=== PATIENT | male | born 1955 | race Caucasian/White ===

== ENCOUNTER → 2021-05-28 11:06 | Outpatient (CLI) | payer MEDICARE, MEDICAID, SELFPAY ==
[2021-05-28 23:01] LABS: COVID19 - ORCAS (NP or Nasal) Negative (Negative)
== END ==
PROVIDERS: Family Provider Family Medicine; PCP Family Medicine; Visit Provider Family Medicine
DX: Z20.822 Contact with and (suspected) exposure to COVID-19 (principal)
CPT/HCPCS: U0003

== ENCOUNTER → 2021-06-22 11:33 | Outpatient (CLI) | payer MEDICARE, MEDICAID, SELFPAY ==
[2021-06-22 19:46] LABS: COVID19 - ORCAS (NP or Nasal) Negative (Negative)
== END ==
PROVIDERS: Family Provider Family Medicine; PCP Family Medicine; Visit Provider Physician Assistant Medical
DX: U07.1 COVID-19 (principal)
CPT/HCPCS: U0003

== ENCOUNTER → 2021-07-20 09:00 | Outpatient (CLI) | payer MEDICARE, MEDICAID, SELFPAY ==
[2021-07-20 19:51] LABS: COVID19 - ORCAS (NP or Nasal) Negative (Negative)
== END ==
PROVIDERS: Family Provider Family Medicine; PCP Family Medicine; Visit Provider Physician Assistant Medical
DX: Z20.822 Contact with and (suspected) exposure to COVID-19 (principal); J02.9 Acute pharyngitis, unspecified
CPT/HCPCS: U0003

== ENCOUNTER → 2023-05-30 11:14 | Outpatient (CLI) | payer MEDICARE, MEDICAID, SELFPAY ==
--- NOTE | 2023-05-30 | DI.MRI.S_ITS ---
PROCEDURE: MR SHOULDER RT W CON INDICATIONS: INJURY TO R SHOULDER TECHNIQUE: After the administration of 12 mL of dilute intra-articular Gadolinium contrast, oblique coronal T1 and T2 spin echo with fat saturation, oblique sagittal T1 spin echo with and without fat saturation, oblique sagittal T2 fast spin echo with fat saturation, axial T1 spin echo with fat saturation through the shoulder. COMPARISON: [facility], , [place] SHOULDER INJECTION MR/CT RT, 05/30/2023, 13:05. FINDINGS: Image quality: Excellent. Rotator cuff: There is moderate supraspinatus and infraspinatus tendinosis with low-grade partial intrasubstance tearing at the distal insertion. The teres minor and subscapularis tendons are intact. There is no significant rotator cuff muscle atrophy. Bones and bursae: No acute trabecular bone injury or fracture. Chronic traction cystic changes are seen at the posterosuperior humeral head. There is diffuse full-thickness cartilage loss throughout the glenohumeral joint with marginal osteophyte formation and remodeling of the articular surfaces. Mild remodeling of the glenoid articular surface is seen resulting in approximately degrees retroversion relative to the midplane of the scapula at the mid glenoid level. No intra-articular filling defect is seen in the glenohumeral joint space. No extravasation of glenohumeral contrast material. Moderate acromioclavicular degenerative changes. Trace noncommunicating subacromial/subdeltoid bursal fluid. Capsule and soft tissues: There is diffuse labral degeneration and chronic degenerative tearing. The proximal biceps long head tendon demonstrates moderate tendinosis. Glenohumeral ligaments appear to be intact. IMPRESSION: 1. Severe glenohumeral osteoarthrosis with diffuse full-thickness cartilage loss, marginal osteophyte formation common remodeling of the articular surfaces resulting in up to 8 degrees glenoid retroversion. 2. Moderate acromioclavicular joint osteoarthrosis. 3. Moderate tendinosis of the intra-articular portion of the biceps long head tendon. 4. Moderate supraspinatus and infraspinatus tendinosis with low-grade partial intrasubstance tearing at the distal supraspinatus insertion. No full-thickness rotator cuff tendon tear is seen. Approved by: Da Robledo M.D. on 05/30/2023 at 13:20
--- NOTE | 2023-05-30 | DI.RAD.S_ITS ---
PROCEDURE: XR THORACIC SPINE 2V INDICATIONS: INJURY TO R SHOULDER/HEADACHE TECHNIQUE: 3 views of the thoracic spine were acquired. COMPARISON: None. FINDINGS: Bones: No fractures or dislocations. No suspicious bony lesions. 12 pairs of ribs are noted, and appear intact where visualized. There is multilevel intervertebral disc height loss with degenerative endplate changes and marginal spurring. Soft tissues: No paravertebral stripe thickening. IMPRESSION: Multilevel degenerative changes of the thoracic spine. Dictated by: Jose Collazo M.D. on 05/30/2023 at 14:32 Approved by: Jose Collazo M.D. on 05/30/2023 at 14:33
--- NOTE | 2023-05-30 | DI.MRI.S_ITS ---
PROCEDURE: MR KNEE LT WO CON INDICATIONS: BILAT KNEE PAIN TECHNIQUE: Noncontrast sagittal PD fast spin echo and T2 fast spin echo with fat saturation, sagittal 3-D FLASH with fat saturation; coronal T1 spin echo and PD fast spin echo with fat saturation, and axial PD fast spin echo with fat saturation through the knee. COMPARISON: [facility] [place], [place], XR KNEE ARTHRITIC SERIES BI, 10/16/2017, 15:50. FINDINGS: Image quality: Excellent. Anterior Cruciate Ligament: Intact. Posterior Cruciate Ligament: Intact. Medial Collateral Ligament: Mild thickening of the proximal medial collateral ligament is most likely secondary to a remote prior low-grade sprain. Lateral Collateral Ligament: Intact. Medial Meniscus: Diminutive appearance of the meniscal body. A horizontal oblique tear is seen at the meniscal body extending to the outer third of the femoral component is seen extending to the tibial articular surface at the junction of the anterior horn and body. articular surface. Lateral Meniscus: Intact. Medial and Lateral Tendons: The semimembranosus tendon insertions and meniscocapsular junction appear intact. Visualized portions of the pes anserinus tendons appear normal. No abnormal bursal fluid. The long and short heads of the biceps femoris tendon appear intact. The popliteus tendon appears intact. No signs of posterolateral corner injury. Iliotibial band appears normal. Anterior Structures: The quadriceps and patellar tendons appear intact. No patellar subluxation. No femoral trochlear dysplasia or ventral trochlear prominence. No edema in the infrapatellar fat pad. Bones: No acute trabecular bone injury or fracture. Medial Femorotibial Cartilage: Full-thickness cartilage loss is seen at the posterior weight-bearing portion of the medial femoral condyle and the central weight-bearing portion of the medial tibial plateau with subchondral cystic changes and edema. Small marginal osteophytes are present. Lateral Femorotibial Cartilage: Grade 3 chondromalacia is seen in the posterior weight-bearing portion of the lateral femoral condyle and lateral tibial plateau. Patellofemoral Cartilage: Full-thickness cartilage loss is seen at the trochlear groove/medial femoral trochlea with subchondral osteophyte formation. High-grade cartilage loss is seen at the median ridge of the patella. Soft Tissues: A moderate joint effusion is present. Trace medial popliteal cyst. The musculature surrounding the knee is normal in bulk. IMPRESSION: 1. Areas of full-thickness cartilage loss are seen in the medial femorotibial and patellofemoral compartments and there is grade 3 chondromalacia in the lateral femorotibial compartment. Tricompartmental marginal osteophytes. 2. Complex tearing of the medial meniscus with horizontal oblique components extending to the femoral and tibial articular surfaces and a diminutive appearance of the meniscal body. 3. Remote prior low-grade sprain of the proximal medial collateral ligament. 4. Cruciate ligaments are intact. No acute trabecular bone injury. 5. Moderate joint effusion. Approved by: Da Robledo M.D. on 05/30/2023 at 14:15
--- NOTE | 2023-05-30 | DI.MRI.S_ITS ---
PROCEDURE: MR KNEE RT WO CON INDICATIONS: BILAT KNEE PAIN TECHNIQUE: Noncontrast sagittal PD fast spin echo and T2 fast spin echo with fat saturation, sagittal 3-D FLASH with fat saturation; coronal T1 spin echo and PD fast spin echo with fat saturation, and axial PD fast spin echo with fat saturation through the knee. COMPARISON: None. FINDINGS: Image quality: Excellent. Anterior Cruciate Ligament: There is mild mucoid degeneration of the anterior cruciate ligament. The bulk of the ligament fibers remain in continuity. Posterior Cruciate Ligament: Intact. Medial Collateral Ligament: Intact. Lateral Collateral Ligament: Intact. Medial Meniscus: Intrasubstance degeneration is seen without a clearly defined tear. Lateral Meniscus: Complex tearing of the posterior horn and body of the lateral meniscus with a dominant radial component and questionable displaced meniscal flap component along the posterior horn. There is extrusion of the meniscal body. Medial and Lateral Tendons: The semimembranosus tendon insertions and meniscocapsular junction appear intact. Visualized portions of the pes anserinus tendons appear normal. No abnormal bursal fluid. The long and short heads of the biceps femoris tendon appear intact. The popliteus tendon appears intact. No signs of posterolateral corner injury. Iliotibial band appears normal. Anterior Structures: Postsurgical changes from quadriceps tendon repair. The surgical construct is intact. The patellar tendon is intact. No patellar subluxation. No femoral trochlear dysplasia or ventral trochlear prominence. Mild scarring in the infrapatellar fat pad. Bones: No acute trabecular bone injury or fracture. Medial Femorotibial Cartilage: Full-thickness cartilage loss is seen in the central weight-bearing portion of the medial femoral condyle with subchondral osteophyte formation, subchondral cystic changes, and small marginal osteophytes. There is background grade 3 chondromalacia in the medial compartment. Lateral Femorotibial Cartilage: Full-thickness cartilage loss is seen in the central posterior weight-bearing portion of the lateral femorotibial compartment with subchondral cystic changes and edema and remodeling of the lateral tibial plateau articular surface. Small marginal osteophytes are present. Patellofemoral Cartilage: Full-thickness cartilage loss is seen at the lateral femoral trochlea with subchondral cystic changes and at the adjacent portion of the lateral patellar facet. Marginal osteophyte formation is present. Soft Tissues: Moderate joint effusion. Trace medial popliteal cyst. Small amount of fluid is seen tracking along the popliteus tendon sheath. The musculature surrounding the knee is normal in bulk. IMPRESSION: 1. Complex tearing of the posterior horn and body of the lateral meniscus with a dominant radial component and extrusion of the meniscal body. Questionable displaced meniscal flap component adjacent to the posterior horn. 2. Intrasubstance degeneration in the medial meniscus without a definite well-defined tear. 3. Full-thickness cartilage loss is seen and all 3 compartments, worst in the lateral femorotibial compartment with subchondral edema and remodeling of the articular surfaces. Tricompartmental marginal osteophytes. 4. Mild mucoid degeneration of the anterior cruciate ligament. The bulk of the ligament fibers are intact. 5. Postsurgical changes from distal quadriceps tendon repair with an intact surgical construct. Normal patellar alignment. 6. Moderate joint effusion. Approved by: Da Robledo M.D. on 05/30/2023 at 13:38
--- NOTE | 2023-05-30 | DI.RAD.S_ITS ---
PROCEDURE: XR CERVICAL SPINE 2V OR 3V INDICATIONS: INJURY TO R SHOULDER/HEADACHE TECHNIQUE: 3 view(s) of the cervical spine were acquired. COMPARISON: None. FINDINGS: Bones: No fractures or dislocations to the C6 level. The lateral masses of C1 appear intact on the odontoid view. Straightening of the normal cervical lordosis. Mild anterolisthesis of C3 on C4 and C4 on C5. There are multilevel degenerative changes of the cervical spine with facet and uncovertebral arthropathy, disc height loss with degenerative endplate changes and spurring. This is severe at C5-C6. No suspicious bony lesions. Soft tissues: No prevertebral soft tissue swelling. IMPRESSION: Multilevel degenerative changes of the cervical spine, severe at C5-C6. Dictated by: Jose Collazo M.D. on 05/30/2023 at 14:33 Approved by: Jose Collazo M.D. on 05/30/2023 at 14:34
--- NOTE | 2023-05-30 | DI.RAD.S_ITS ---
PROCEDURE: [place] SHOULDER INJECTION MR/CT RT INDICATIONS: INJURY TO R SHOULDER COMPARISON: None. TECHNIQUE: The indications, alternatives, benefits, risks, and complications of the procedure were explained to the patient. Written informed consent was obtained and placed in the chart. The shoulder was examined fluoroscopically and a site for needle placement chosen for entry into the glenohumeral joint from an anterior approach. The skin was prepped and draped in a sterile fashion, and 1% lidocaine infiltrated from skin down to joint capsule. A spinal needle was inserted into the glenohumeral joint, and a small amount of iodinated contrast media injected to confirm intra-articular placement of the needle tip. This was followed by approximately 12 mL dilute solution of a gadolinium containing MR contrast agent. The needle was removed and a dressing was applied. The patient was given postprocedural instructions and sent to the MR suite for MR imaging. FINDINGS: A single fluoroscopic spot image demonstrates intra-articular location of injected iodinated contrast. IMPRESSION: Successful fluoroscopically guided administration of dilute Gadolinium solution into the shoulder joint for MR arthrogram. Dictated by: Jose Collazo M.D. on 05/30/2023 at 13:00 Approved by: Jose Collazo M.D. on 05/30/2023 at 13:00
--- NOTE | 2023-05-30 | DI.CT.S_ITS ---
PROCEDURE: CT HEAD/BRAIN WO CON INDICATIONS: HEADACHE TECHNIQUE: Noncontrast 4.5 mm thick angled axial sections acquired from the foramen magnum to the vertex, with coronal and sagittal reformats. For radiation dose reduction, the following was used: automated exposure control, adjustment of mA and/or kV according to patient size. COMPARISON: None. FINDINGS: Image quality: Mild streak artifact can be seen through the skull base. CSF spaces: Basal cisterns are patent. No extra-axial fluid collections. The ventricles are symmetric in size and shape. Brain: No intracranial bleeds or masses. There is cerebral volume loss for age, with resultant ventricular and sulcal prominence. There are periventricular and deep white matter chronic small vessel ischemic changes. There is intracranial internal carotid artery atherosclerosis. Skull and face: Calvarium and visualized facial bones appear intact, without suspicious lesions. Sinuses: Visualized sinuses and mastoids are clear. IMPRESSION: Noncontrast head CT within normal limits for age, without a cause of headache identified. No acute intracranial hemorrhage is seen. To the limits of this noncontrast study, no findings masses or mass effect can be seen. No hydrocephalus is seen. The cerebellar tonsils demonstrate an unremarkable appearance and are not low lying. Dictated by: Hilario Villalta M.D. on 05/30/2023 at 13:22 Approved by: Hilario Villalta M.D. on 05/30/2023 at 13:23
[2023-05-30] MEDS: LIDOCAINE 1% 20 ML INJ (12:15)
[2023-05-30] MEDS: SODIUM CHLORIDE 0.9 % 20 ML VIAL IV (12:15)
== END ==
PROVIDERS: Family Provider Family Medicine; PCP Family Medicine; Referring Provider Family Medicine; Visit Provider Family Medicine
DX: R51.9 Headache, unspecified (principal); S49.91XS Unspecified injury of right shoulder and upper arm, sequela; M23.92 Unspecified internal derangement of left knee; M23.91 Unspecified internal derangement of right knee; M17.11 Unilateral primary osteoarthritis, right knee; M25.711 Osteophyte, right shoulder; M75.111 Incomplete rotator cuff tear or rupture of right shoulder, not specified as traumatic; S83.271A Complex tear of lateral meniscus, current injury, right knee, initial encounter; M25.761 Osteophyte, right knee; M25.461 Effusion, right knee; M94.262 Chondromalacia, left knee; S83.232A Complex tear of medial meniscus, current injury, left knee, initial encounter; S83.412A Sprain of medial collateral ligament of left knee, initial encounter; M25.462 Effusion, left knee
CPT/HCPCS: 23350; 70450; 72040; 72070; 73222; 73721; 77002

== ENCOUNTER → 2023-10-22 09:02 | Outpatient (CLI) | payer MEDICARE, MEDICAID, SELFPAY ==
--- NOTE | 2023-10-22 | DI.RAD.S_ITS ---
PROCEDURE: XR LUMBAR SPINE 2-3V INDICATIONS: BACK PAIN TECHNIQUE: 3 views of the lumbar spine were acquired. COMPARISON: None. FINDINGS: Bones: Grade 1 anterolisthesis of L4 on L5. Vertebral body heights are well maintained. Multilevel degenerative disc disease of the lumbar spine, most pronounced and moderate at L4-5 and L5-S1. Severe lower lumbar facet arthropathy. Soft tissues: Overlying bowel gas pattern is normal. No suspicious soft tissue calcifications. IMPRESSION: No acute bony abnormality. Dictated by: Sharon Rodriguez M.D. on 10/22/2023 at 15:30 Approved by: Sharon Rodriguez M.D. on 10/22/2023 at 15:32
--- NOTE | 2023-10-22 | DI.RAD.S_ITS ---
PROCEDURE: XR HAND RT MIN 3V INDICATIONS: HAND PAIN TECHNIQUE: 3 views of the hand(s) acquired. COMPARISON: None. FINDINGS: Bones: Moderate degenerative changes of the 1st interphalangeal joint. Mild degenerative change of the 1st metacarpal phalangeal joint. Moderate degenerative changes of the 2nd metacarpal phalangeal joint. Moderate degenerative change of the 5th distal interphalangeal joint. No acute fracture or dislocation. Soft tissues: No suspicious soft tissue calcifications. IMPRESSION: No acute bony abnormality. Dictated by: Sharon Rodriguez M.D. on 10/22/2023 at 15:28 Approved by: Sharon Rodriguez M.D. on 10/22/2023 at 15:30
--- NOTE | 2023-10-22 | DI.RAD.S_ITS ---
PROCEDURE: XR HAND LT MIN 3V INDICATIONS: HAND PAIN TECHNIQUE: 3 views of the hand(s) acquired. COMPARISON: None. FINDINGS: Bones: Suture anchor is seen at the base of the 1st proximal phalanx. Moderate degenerative changes at the 1st interphalangeal joint and the 1st metacarpal phalangeal joint. No acute fracture or dislocation. IMPRESSION: No acute bony abnormality. Dictated by: Sharon Rodriguez M.D. on 10/22/2023 at 15:26 Approved by: Sharon Rodriguez M.D. on 10/22/2023 at 15:28
--- NOTE | 2023-10-22 | DI.RAD.S_ITS ---
PROCEDURE: XR SHOULDER LT MIN 2V INDICATIONS: SHOULDER PAIN TECHNIQUE: 3 views of the shoulder were acquired. COMPARISON: None. FINDINGS: Mild degenerative changes acromioclavicular joint. Moderate degenerative change of the glenohumeral joint. No acute fracture or dislocation. IMPRESSION: No acute bony abnormality. Dictated by: Sharon Rodriguez M.D. on 10/22/2023 at 15:32 Approved by: Sharon Rodriguez M.D. on 10/22/2023 at 15:33
--- NOTE | 2023-10-22 09:15 | DI.CT.S_ITS ---
PROCEDURE: CT FACIAL BONES WO CON INDICATIONS: 67-year-old male with headaches status post left-sided facial trauma 1 year prior TECHNIQUE: Noncontrast 2.5 mm thick axial images acquired from the mandible through the frontal sinuses, with coronal and sagittal reformatting. For radiation dose reduction, the following was used: automated exposure control, adjustment of mA and/or kV according to patient size. COMPARISON: None. FINDINGS: Maxillofacial Bones: The zygomaticomaxillary complex is intact. The pterygoid plates and skull base are unremarkable. No evidence of fracture or lytic lesion. Cervical spine degenerative disc disease and arthropathy Mandible: The mandible is intact without fracture. Unremarkable temporomandibular articulation. Dentition: Unremarkable mandibular and maxillary dentition. Soft tissues: No maxillofacial soft tissue swelling. No radiopaque foreign bodies. Cavernous ICA atherosclerotic vascular calcification Orbits: The osseous orbits, globes and ocular muscles unremarkable. Sinuses and Mastoid: 1.3 cm retention cyst in the left maxillary sinus IMPRESSION: Unremarkable facial bones without evidence of old fracture deformity or retained foreign body. Incidental small left maxillary sinus retention cyst. Approved by: Bradford Abel M.D. on 10/22/2023 at 12:20
== END ==
PROVIDERS: Family Provider Family Medicine; PCP Family Medicine; Referring Provider Family Medicine; Visit Provider Family Medicine
DX: S07 Crushing injury of head (principal); R51.9 Headache, unspecified; J34.1 Cyst and mucocele of nose and nasal sinus; M25.512 Pain in left shoulder; M79.644 Pain in right finger(s); M79.645 Pain in left finger(s); M43.16 Spondylolisthesis, lumbar region; M51.36 Other intervertebral disc degeneration, lumbar region; M51.37 Other intervertebral disc degeneration, lumbosacral region; M47.816 Spondylosis without myelopathy or radiculopathy, lumbar region; M54.50 Low back pain, unspecified
CPT/HCPCS: 70486; 72100; 73030; 73130

== ENCOUNTER 2023-11-18 05:55 | Day surgery (SDC) | payer MEDICARE, MEDICAID, SELFPAY ==
[2023-11-13 12:06] VITALS: BMI 32.1
[2023-11-18] VITALS (10 sets, daily range): BP systolic 118–170; BP diastolic 68–88; PULSE 68–95; RESP 12–18; TEMP 36.2–36.8; O2SAT 94–99; BMI 31.6
--- NOTE | 2023-11-18 06:51 | DI.RAD.S_ITS ---
PROCEDURE: XR KNEE RT 1TO2V INDICATIONS: total right knee TECHNIQUE: 2 view(s) of the knee acquired. COMPARISON: None. FINDINGS: Bones: Patient is status post knee joint arthroplasty. Hardware components are in expected positions. Visualized bony structures are intact. Soft tissues: Overlying postoperative changes are noted. IMPRESSION: Expected post-operative appearance of a knee arthroplasty. Dictated by: Sera Hu M.D. on 11/18/2023 at 11:10 Approved by: Sera Hu M.D. on 11/18/2023 at 11:10
[2023-11-18] MEDS: LACTATED RINGERS 1,000 ML 42 ML IV (07:00)
[2023-11-18] MEDS: ACETAMINOPHEN 325 MG TABLET 975 MG PO (07:00)
[2023-11-18] MEDS: CELECOXIB 200 MG CAPSULE PO (07:00)
[2023-11-18] MEDS: VANCOMYCIN 1,500 MG/300 ML PIGGYBACK 200 MG IV (07:07)
--- NOTE | 2023-11-18 07:45 | P.HP_ITS ---
History of Present Illness History of Present Illness Date Patient Seen: 11/18/23 Time Patient Seen: 07:30 Date of Onset of Symptoms: 11/18/23 Chief complaint: Total knee right Narrative: 67-year-old gentleman with a history of multiple right knee injuries. He has ongoing severe right knee pain and significant instability. Please see attached office notes for full history and physical. He notes persistent substantial pain. He is having ongoing problems with instability. He has had multiple operations on his right knee including a quad repair with some problems with wound healing and multiple arthroscopic as well as open surgeries in the past. He has a history of suture reaction but states that he did not have a known history of previous infection. [facility] Medical History Osteoarthritis Seasonal allergies Asthma ADD (attention deficit disorder) TBI (traumatic brain injury) (1997) Hx SBO (02/10/20) History of fracture of vertebra Surgical History Hx of thumb surgery Hx of shoulder surgery Hx of arthroscopy of left knee (2009) Hx of knee surgery Hx of knee surgery (2001) Hx of arthroscopy of right knee (1990) Hx of tonsillectomy Hx of colostomy Status post colostomy takedown Status post Sherri procedure Hx of abdominal surgery (2019) Hx of abdominal surgery (2015) S/P repair of ventral hernia Social History household members: significant other Smoking Status: Never smoker alcohol intake: current Meds Home Medications and Allergies Home Medications Medication Instructions Recorded Confirmed Type aspirin 325 mg tablet 325 mg PO DAILY PRN pain 01/23/21 11/18/23 History triamcinolone acetonide 55 mcg 2 spray intranasal DAILY 01/23/21 11/18/23 History nasal spray aerosol acyclovir 400 mg tablet 400 mg PO TID PRN cold sores #60 01/24/21 11/18/23 Rx tabs albuterol sulfate 90 mcg/actuation 2 puff inhalation Q4-6H PRN 01/24/21 11/18/23 Rx aerosol inhaler shortness of breath or wheezing #8.5 grams celecoxib 200 mg capsule 200 mg PO BID #60 caps 07/21/21 05/14/24 Rx dextroamphetamine-amphetamine 20 20 mg PO TID #84 tabs 01/24/21 11/18/23 Rx mg tablet diazepam 10 mg tablet 10 mg PO TID PRN anxiety #60 tabs 01/24/21 11/18/23 Rx levothyroxine 125 mcg tablet 125 mcg PO DAILY #30 tabs 01/24/21 11/18/23 Rx quetiapine 100 mg tablet 400 mg (4 x 100 mg) PO BEDTIME 01/24/21 11/18/23 Rx #120 tabs tamsulosin 0.4 mg capsule 0.4 mg PO BEDTIME #30 caps 01/24/21 11/18/23 Rx fluticasone furoate 100 1 inh inhalation DAILY 11/13/23 11/18/23 History mcg/actuation blister powder for inhalation (Arnuity Ellipta) scopolamine base 1 mg over 3 days 1 patch transdermal Q72H PRN 11/13/23 11/13/23 History transdermal patch Dizziness Allergies Allergy/AdvReac Type Severity Reaction Status Date / Time fentanyl Allergy Severe Anaphylaxis Verified 11/18/23 06:52 pollen extracts Allergy Unknown HAY FEVER Verified 11/18/23 06:52 Review of Systems Review of Systems Narrative: No recent fever chills, Exam Vital Signs (past 8 hours): - 11/18/23 07:16 Temperature 97.5 F L Pulse Rate 94 H Respiratory Rate 17 Blood Pressure 165/88 H Pulse Oximetry 97 Oxygen Delivery Method Room Air Oxygen Delivery Method Room Air Narrative Exam Narrative: HEENT is benign, lungs are clear cor regular rate and rhythm, abdomen obese but benign, right lower extremity healed incision, no significant extensor lag, acceptable tracking of the patella, severe crepitation with range of motion, calf soft distally, neurologically intact distally, no civic open wounds but slight scratches on legs bilaterally, Objective Labs Labs: X-rays show severe right knee osteoarthritis tricompartment arthritis with retained suture anchors in the patella Assessment & Plan Assessment and plan (1) History of traumatic brain injury: Problem details: 1997 - resulted in ADD and PTSD Status: Acute (2) BPH associated with nocturia: Status: Chronic (3) Attention deficit disorder (ADD) in adult: Problem details: secondary to TBI in 1997 Status: Chronic (4) PTSD (post-traumatic stress disorder): Problem details: secondary to TBI in 1997 Status: Chronic (5) Chronic pain: Status: Chronic (6) Osteoarthritis of right knee: Qualifiers: Osteoarthritis type: post-traumatic Qualified Code(s): M17.31 - Unilateral post-traumatic osteoarthritis, right knee Status: Acute Plan I have recommended a right total knee arthroplasty. Procedure options risks benefits and complications were discussed in detail. He understands concerns regarding risk for infection as he has had multiple procedures in the past. He also understands that he has had prior patellar injuries and he is at increased risk for problems with his patellofemoral joint and or possibly fracture. He would like to get his knee stable enough that he may be able to do physical activity again including skiing on [employer] runs but understands that he will not be able to return to his previous level of intense skiing. Risks including but not limited to persistent pain despite satisfactory arthroplasty, fracture, infection, DVT, and potential anesthetic complications were discussed in detail. He has been previously seen and had several appointments in the office including an extensive appointment on the phone preoperatively to further discuss all of his concerns. He understands and agrees.
--- NOTE | 2023-11-18 07:45 | PM.PREOP ---
Pre-operative Note Interval Note History & Physical reviewed/Exam performed by Physician: Yes Changes to H&P: No
--- NOTE | 2023-11-18 07:49 | SUR.PREOP ---
Block start time [0740] . Monitoring initiated and maintained throughout procedure. Oxygen and medications given per anesthesiologist instructions. Patient remained stable throughout procedure, no adverse reactions noted. Block end time [0745].
[2023-11-18] MEDS: TRANEXAMIC ACID 1,000 MG VIAL 1000 MG INJ ×2 (08:08→09:58)
[2023-11-18] MEDS: CEFAZOLIN 2 GM/100 ML PREMIX 100 ML IV (08:08)
--- NOTE | 2023-11-18 08:10 | P.OP_ITS ---
Operative Date/Time/Diagnoses Date of procedure: 11/18/23 Time of procedure: 08:00 Pre-op diagnosis: SEVERE RIGHT KNEE OA posttraumatic Post-op diagnosis: same Procedure & Clinicians Procedure: Right total knee arthroplasty Same procedure as scheduled: Yes Indications: The patient has had progressively worsening right knee pain with radiographic changes consistent with arthritis. He has had multiple prior operations. He did have problems in the past with some sutures spitting as well as some reaction to previous ligament reconstructive materials. He has a history of a quad rupture with retained suture anchors in the plan is not to resurface his patella. Non-operative management has failed and the patient has requested total knee replacement. The risks, benefits and alternatives to surgery were discussed with the patient prior to proceeding. Risks discussed included, but were not limited to, failure to relieve pain, stiffness, infection, nerve damage, deep venous thrombosis, pulmonary embolism, stroke, coma, heart attack, permanent paralysis and , as well as the potential need for eventual revision of the prosthetic. Surgeon: Anna Funes [employer] Associate: Erich Quiñonez Anesthesia Type: General Operative Notes Closure Type: primary Specimen(s): none sent Estimated Blood Loss (mL): 250 Blood products transfused: none Tourniquet time (min): 89 Procedure in detail: The patient was seen in the pre-operative area, where the patient identified the right knee as the operative site and this was marked with my initials. The patient received pre-operative antibiotics, and was taken to the operating room and placed on the operative table in the supine position. After satisfactory anesthesia, a manager gaming out was performed. The right leg was encircled with a tourniquet about the proximal thigh, and the leg was prepared from the toes to the tourniquet with ChloroPrep in the usual fashion and draped through sterile drapes. The leg was elevated and exsanguinated with Eschmark bandage and the tourniquet inflated to [250] mmHg pressure. A PA was used during the procedure and was essential for intraoperative retraction and safe implantation of the components. The right knee was approached through an approximately 18 cm incision centered over the patella and carried into the knee through a medial parapatellar arthrotomy. Portion of the medial and lateral meniscus was resected. Soft tissue was carefully mobilized around the patella and any overlying osteophytes were removed. A small amount of additional medial and lateral meniscus was resected. Cori PINS were placed in the femur for navigation. The guide was placed along the tibia It looked like an appropriate distal femoral cut and the cut was made without difficulty. The rotation was assessed and the appropriate size femoral guide was placed on the distal femur and finishing cuts were made. There was no evidence of notching. The anterior, posterior and chamfer cuts were then made. The posterior osteophytes and soft tissues were then removed. The posterior capsule was injected with part of a mixture of 60 ml 0.25% Marcaine mixed with 20 ml Exparel for post operative pain control. The remainder of this mixture was injected into the capsule and subcutaneous tissues during cement curing. The tibia was carefully navigated using the robotic navigation for optimizing the cut on the tibia. Tibia was resected without difficulty. The patient was placed in extension residual medial and lateral meniscus as well as any residual bone was carefully resected. [No] additional tibia was resected. Hemostasis was achieved especially posteriorly. Additional local was injected into the posterior capsule. The extension gap was assessed and appeared to be adequate. The femoral component was trial was placed and the notch was finished. Trial tibial and femoral components were then placed and the knee placed through a range of motion. Range of motion was [0-130], with good stability throughout the range. The trials were then removed, and the tibia was finished. The bone was prepared with pulsatile lavage, and dried with a sponge. Cement was applied and the final prosthetics placed. Excess cement was removed during and after cement curing. After confirming there was no extruded cement posteriorly, the final tibial insert was placed. The knee was copiously irrigated and the tourniquet deflated. Hemostasis was obtained with the Bovie cautery. The capsule was closed with int errupted # 1 Vicryl suture. The subcutaneous layer was closed with barbed sutures, and the skin with a running 3-0 V-Lock suture and Surgical glue. An Aquacel Ag dressing was applied and the patient was taken to recovery having tolerated the procedure well. Complications: none Post-operative Condition: stable Disposition: observation Plan for aftercare: The patient will be maintained on a standard total knee replacement protocol with weight bearing as tolerated. The patient will receive aspirin and sequential compression devices for DVT prophylaxis. The patient will be discharged home when safe for the home environment.
--- NOTE | 2023-11-18 08:41 | PM.PNB.1 ---
Peripheral Nerve Block Note Pre-Procedure Reason for block: Attending surgeon request/order for post-op pain management Consent obtained from: Patient Procedure Date of procedure: 11/18/23 Start Time: 07:40 End Time: 07:45 Performed by: Frankie Kerr Sedation - enter dose in comment field: IV Midazolam (mg) (2mg) Location: Pre-Op Position: Supine Laterality: Right Sterile Technique: Sterile barrier maintained, Sterile gloves, Mask, Sterile drapes, U/S probe cover and Chloraprep Skin Wheal: Lidocaine 1% mL: 3 Gauge: 25 Equipment Single injection - Needle brand, gauge, length: Pajunk 100mm Medications Medications - enter concentration (%) & mL in comment field: Bupivacaine (0.5% 30 ml) Incremental aspiration prior to injection: Yes Ultrasound Reason for Ultrasound: U/S guidance used for needle placement and U/S used to visualize spread of anesthetic Image printed/saved/archived: Yes Limited exam reveals no abnormal findings: Yes Vital signs VS: - 11/18/23 07:16 11/18/23 07:50 Temperature 97.5 F L Pulse Rate 94 H 68 Respiratory Rate 17 16 Blood Pressure 165/88 H 147/88 H Pulse Oximetry 97 98 Oxygen Delivery Method Room Air Room Air Oxygen Delivery Method Room Air Events Nerve Block Events: Procedure uneventful
[2023-11-18] MEDS: BUPIVACAINE 0.25% (PF) 60 ML, EPINEPHrine 0.3 MG INJ (08:43)
--- NOTE | 2023-11-18 09:18 | SUR.OPER ---
Supine on padded OR bed. Pillow under head, arms secured on padded armboards <90 degree abduction. Safety belt across torso. Non-operative leg secured with tape over blanket over lower leg. Operative leg secured in Nigel positioner. Foam padded brace at thigh of operative leg.
--- NOTE | 2023-11-18 09:20 | SUR.OPER ---
gel pads placed under both wrist and towel under right axilla.
[2023-11-18] MEDS: BUPIVACAINE LIPOSOME 266 MG/20 ML VIAL INJ (10:14)
[2023-11-18] MEDS: ONDANSETRON 4 MG/2 ML INJ IV (10:52)
[2023-11-18] MEDS: hydrOXYzine 50 MG/ML INJ 25 MG IM (10:54)
[2023-11-18] MEDS: OXYCODONE IR 5 MG TABLET PO ×2 (10:55→11:42)
--- NOTE | 2023-11-18 12:47 | SUR.PHASEII ---
1310 PT CALLED. ORTHOSTATICS DONE - LYING 151/85, HR 91, SAT 97...SITTING 149/86 HR 90, 98%.
--- NOTE | 2023-11-18 12:49 | SUR.PHASEII ---
S/O AT BEDSIDE. PT REPOSITIONED FOR COMFORT. AWAITING PT ARRIVAL.
--- NOTE | 2023-11-18 13:00 | PT.IIE ---
Current Diagnoses Post-traumatic stress disorder, unspecified (11/18/23) Other specified behavioral and emotional disorders with onset usually occurring in childhood and adolescence (11/18/23) Other chronic pain (11/18/23) Unilateral primary osteoarthritis, right knee (11/18/23) Unilateral post-traumatic osteoarthritis, right knee (11/18/23) Benign prostatic hyperplasia with lower urinary tract symptoms (11/18/23) Nocturia (11/18/23) Personal history of traumatic brain injury (11/18/23) Surgery Performed Operation Date: 11/18/23 07:45 Actual Procedures p Total Knee Arthroplasty - Robot(Right) - Anna Funes MD Surgical History (Last Reviewed 11/18/23 @ 07:48 by Anna Funes MD) Hx of abdominal surgery (2015) Hx of abdominal surgery (2019) Hx of arthroscopy of left knee (2009) Hx of arthroscopy of right knee (1990) Hx of colostomy Hx of knee surgery (2001) Hx of knee surgery Hx of shoulder surgery Hx of thumb surgery Hx of tonsillectomy S/P repair of ventral hernia Status post colostomy takedown Status post Sherri procedure Medical History (Last Reviewed 11/18/23 @ 07:48 by Anna Funes MD) ADD (attention deficit disorder) Asthma History of fracture of vertebra Hx SBO (02/10/20) Osteoarthritis Seasonal allergies TBI (traumatic brain injury) (1997) Physical Therapy Inpatient Evaluation/Re-Eval M1 PT/OT-IP Prior Functional Status Start: 11/18/23 16:24 Freq: NEEDED Status: Active Protocol: Document 11/18/23 13:00 AB (Rec: 11/18/23 16:27 AB [id number]) Medical Review Prior Functional Status Medical History Reviewed Yes Communication able to make needs known Mobility and Gait pt stated that he was independent with all mobilities and ambulation without AD Social History Household Members significant other Living Arrangements House Number of Floors (Floors) 3 or More Floors Number of Stairs To Enter/Railing? 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 M2 PT-IP Current Condition Start: 11/18/23 16:24 Freq: NEEDED Status: Active Protocol: Document 11/18/23 13:00 AB (Rec: 11/18/23 16:27 AB [id number]) Physical Therapy Current Condition Current Condition Evaluation Date 11/18/23 Treatment Diagnosis s/p R TKA; difficulty in walking Onset Date 11/18/23 M3 PT-IP Subjective Start: 11/18/23 16:24 Freq: NEEDED Status: Active Protocol: Document 11/18/23 13:00 AB (Rec: 11/18/23 16:28 AB [id number]) Subjective Physical Therapy Visit Type Type Initial Evaluation Visit Start Time 13:00 Visit Stop Time 14:00 Number of WIRE BENDER HAND Visits 0 Physical Therapy Visit Comments Patient Comments agreeable to do PT Therapy Pain Assessment Pain When Pain Assessed At Rest Pain Present Pain Present Pain Reported Location Right Knee Intensity 6 Scale Used Numeric (0 - 10) Pain Management Techniques Distraction,Modification of Treatment,Re-positioning, Timing of Activity with Medications M4 PT-IP Mobility and Gait Start: 11/18/23 16:24 Freq: NEEDED Status: Active Protocol: Document 11/18/23 13:00 AB (Rec: 11/18/23 16:34 AB [id number]) PT-Bed Mobility Assessment Supine to Sit Supine to Sit Standby Assistance Sit to Supine Sit to Supine Standby Assistance PT-Transfer Assessment Sit to and From Stand Sit to and from Stand Contact Guard Assistance,1 Person Assistance,Use of Upper Extremities Equipment Transfer Assistive Device Gait Belt,Front Wheeled Walker Orthotic/Prosthetic Devices or Brace: No Transfer Ability Level of Assist Standby Assistance,Contact Guard Assistance,1 Person Assistance,Use of Upper Extremities Comments Mobility Comments pt supine in bed. pt's significant other with pt. Pt in PACU and plans to go home today. obtained PLOF and home set up from pt. post-op folder provided and reviewed contents. reviewed HEP. BP: 155/68. pt completed supine to sit SBA . able to sit on EOB SBA. pt can be impulsive and cued for safety. pt completed sit to stand from EOB CGA and ambulated using FWW CGA ~ 40 ft. cued for R quads activation. pt sat back on bed. caregiver training conducted. educated spouse on how to use safety belt and how to assist pt. spouse was able to put safety belt on pt and assisted pt with sit to stand ambulation using fWW ~ 20 ft. assisted pt to the stairs for training. educated pt and spouse regarding up/down steps. pt completed up/down steps holding on to R rail with B hands CGA and initial max cues for techniques but able to complete towards the end with only occasional min cues. spouse was able to assist pt with stairs. pt also completed up/dwon steps using B rails CGA. assisted pt back to his bed. pt and significant other without other concerns. Left pt with nurse. Gait Assessment Gait Gait Assistance Required: Standby Assistance,Contact Guard Assist Distance (Feet) 40 Able to Maintain Weight Bearing Status Yes During Gait Assistive Devices Assistive Device Gait Belt,Front Wheeled Walker Orthotic/Prosthetic Devices or Brace: No Gait Deviations General Gait Pattern Decreased Stride Length, Decreased Feet Clearance Factors Limiting Gait Function Factors Limiting Gait Function Decreased Activity Tolerance, Decreased Strength,Limited Range of Motion,Pain,Poor Balance,Poor Safety Awareness Stair Climbing Assessment Devices Stair Climbing Assistive Devices Left Railing,Right Railing Technique/Endurance Stair Climbing Direction Ascend and Descend Stair Climbing Technique Step to Step Number of Steps Climbed 3 Query Text: Stair Climbing Set # Repetitions (reps) 3 PT-Balance Assessment Sitting Balance and Reactions Static Sitting Balance Ability Normal Dynamic Sitting Balance Ability Good Standing Balance and Reactions Static Standing Balance Ability Fair Dynamic Standing Balance Ability Fair Device Used FWW M5 PT-IP Objective Assessments Start: 11/18/23 16:24 Freq: NEEDED Status: Active Protocol: Document 11/18/23 13:00 AB (Rec: 11/18/23 17:20 AB [id number]) Orientation Orientation/Cognition Level of Alertness Alert Orientation Name,Place,Situation Language Function Ability No Deficits Noted Safety Awareness Decreased Safety Awareness Memory Description No Deficits Noted Gross Range of Motion Lower Extremity ROM Impairments R knee flexion: ~ 90 deg R knee extension: ~ 10 deg less to 0 Strength Lower Extremity Strength Assessment Right Impaired Hip 4/5 Knee 4-/5 Coordination Assessment Gross Coordination Gross Coordination WNL Sensation Assessment Sensation Gross Sensation Right LE Impaired Sensation Description Numbness Comments Sensation Comments slight numbness around knee area Muscle Tone Muscle Tone WNL Yes M6 PT-IP Treatment Start: 11/18/23 16:24 Freq: NEEDED Status: Active Protocol: Document 11/18/23 13:00 AB (Rec: 11/18/23 17:20 [id number]) Physical Therapy Treatment Education Education Provided Precautions,Weight Bearing Status,Post-Op Packet,Safety M7 PT-IP Assessment and Plan Start: 11/18/23 16:24 Freq: NEEDED Status: Active Protocol: Document 11/18/23 13:00 AB (Rec: 11/18/23 17:20 [id number]) PT Summary Assessment and Plan Potential Rehabilitation Potential Good Status of Condition at Evaluation Stable Summary Impairments Pain,ROM,Strength,Balance, Coordination,Sensation, Cognition,Bed Mobility, Transfers,Gait,Activity Tolerance Assessment Summary pt is a 67 y/o M s/p R TKA POD 0. pt is WBAT on RLE. pt requiring SBA to CGA with mobility using FWW and plans to go home and his significant other will be able to assist him. caregiver training conducted and significant other was able to safely assist pt with mobility. pt plans to go home today and has outpt PT set up per pt. Goals Bed Mobility Goal Independent Transfer Goal Independent,Front Wheeled Walker Gait Goal Independent,Front Wheel Walker Gait Distance 200 Other Goals up/down 12 steps R rail mod I Days to Meet Goals 5 Frequency of Treatment Frequency Of Treatment Twice a Day Treatment Plan Physical Therapy Treatment Plan Bed Mobility Training,Transfer Training,Gait Training, Therapeutic Exercise,Balance Retraining,Post Op Education, Discharge Planning,Hot or Cold Pack,Neuromuscular Re-ed, Coordination Retraining,Manual Therapy Weight Bearing Status Weight Bearing Status Weight Bear as Tolerated Allowed Weight Bearing Amount (enter % RLE WBAT or #) (%) Recommendations To Nursing Amount of Assist Needed 1 Person Assist Discharge Recommendations PT Discharge Recommendations Home with Assistance, Outpatient PT Transportation Needs at Discharge Private Vehicle Initialized on 11/18/23 17:25 - END OF NOTE
== END 2023-11-18 14:20 | disposition home or self-care (01) ==
PROVIDERS: Family Provider Family Medicine; PCP Family Medicine; Referring Provider Orthopaedic Surgery; Visit Provider Orthopaedic Surgery
PROC: 0SRC0JZ Replacement of Right Knee Joint with Synthetic Substitute, Open Approach (ICD-10-PCS; CPT 27447; principal; 2023-11-18 07:45)
DX: M17.11 Unilateral primary osteoarthritis, right knee (principal); G89.18 Other acute postprocedural pain; M25.761 Osteophyte, right knee
CPT/HCPCS: 27447; 64450; 73560; 97161; 97530; C1776; C9290; J0171; J0690; J1100; J1170; J2250; J2405; J2704; J3010; J3410

== ENCOUNTER → 2024-09-13 11:43 | Outpatient (CLI) | payer MEDICARE, MEDICAID, SELFPAY ==
--- NOTE | 2024-09-13 11:59 | DI.RAD.S_ITS ---
PROCEDURE: XR KNEE LT 3V INDICATIONS: KNEE PAIN TECHNIQUE: 3 views of the knee were acquired. COMPARISON: [facility] ([facility]), CR, XR KNEE RT 3V, 04/06/2024, 14:49. FINDINGS: Bones: There are no osseous abnormalities. Joints: Moderate patellofemoral and medial tibial femoral degenerative change appreciated. Small effusion noted.. Soft tissues: Normal IMPRESSION: Moderate degeneration. Dictated by: Cliff Frazier M.D. on 09/14/2024 at 9:36 Approved by: Cliff Frazier M.D. on 09/14/2024 at 9:36
--- NOTE | 2024-09-13 11:59 | DI.RAD.S_ITS ---
PROCEDURE: XR SHOULDER RT MIN 2V INDICATIONS: SHOULDER PAIN TECHNIQUE: Three views of the right shoulder were acquired. COMPARISON: [facility], CR, XR SHOULDER LT MIN 2V, 10/22/2023, 12:28. FINDINGS: Bones: There are no osseous abnormalities. Acromioclavicular and glenohumeral joints: Mild acromioclavicular and severe glenohumeral degeneration appreciated. Soft tissues: No soft tissue swelling, calcification or mass. IMPRESSION: Degeneration Dictated by: Cliff Frazier M.D. on 09/14/2024 at 9:38 Approved by: Cliff Frazier M.D. on 09/14/2024 at 9:39
--- NOTE | 2024-09-13 11:59 | DI.RAD.S_ITS ---
PROCEDURE: XR KNEE RT 3V INDICATIONS: KNEE PAIN TECHNIQUE: 3 views of the knee were acquired. COMPARISON: [facility] ([facility]), CR, XR KNEE RT 3V, 04/06/2024, 14:49. FINDINGS: Bones: There are no osseous abnormalities. Joints: Total knee prostheses remains anatomically aligned without evidence of loosening. Small effusion noted. Few tiny calcifications seen in the tibial femoral joint. Mild lateral patellar subluxation noted Soft tissues: Normal IMPRESSION: Total knee prostheses anatomic alignment. Small effusion with few tiny loose bodies noted . Dictated by: Cliff Frazier M.D. on 09/14/2024 at 9:37 Approved by: Cliff Frazier M.D. on 09/14/2024 at 9:38
--- NOTE | 2024-09-13 11:59 | DI.RAD.S_ITS ---
PROCEDURE: XR HAND RT MIN 3V INDICATIONS: HAND PAIN TECHNIQUE: 3 views of the hand(s) acquired. COMPARISON: [facility], CR, XR HAND RT MIN 3V, 10/22/2023, 12:28. 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 There is mild degenerative change STT 1st CMC and moderate degenerative change in the 1st MCP and PIP. Mild degenerative change seen in the remaining interphalangeal and MCP joints. Soft tissues: No soft tissue abnormality. IMPRESSION: Multilevel degeneration-stable since exam 1 year prior Dictated by: Cliff Frazier M.D. on 09/14/2024 at 9:34 Approved by: Cliff Frazier M.D. on 09/14/2024 at 9:36
== END ==
LOC: RAD 11:54
PROVIDERS: Family Provider Family Medicine; PCP Family Medicine; Referring Provider Family Medicine; Visit Provider Family Medicine
DX: M19.011 Primary osteoarthritis, right shoulder (principal); M19.041 Primary osteoarthritis, right hand; M25.511 Pain in right shoulder; S69.91XA Unspecified injury of right wrist, hand and finger(s), initial encounter; M25.561 Pain in right knee; M25.562 Pain in left knee; M25.462 Effusion, left knee; M25.461 Effusion, right knee; X58.XXXA Exposure to other specified factors, initial encounter; Z96.651 Presence of right artificial knee joint
CPT/HCPCS: 73030; 73130; 73562

== ENCOUNTER → 2024-09-15 12:11 | Outpatient (CLI) | payer MEDICARE, MEDICAID, SELFPAY ==
--- NOTE | 2024-09-15 13:40 | DI.MRI.S_ITS ---
PROCEDURE: MR HEAD/BRAIN WO CON INDICATIONS: headache TECHNIQUE: Non-contrast axial T1 spin echo, axial T2 fast spin echo, sagittal and axial FLAIR, coronal T2 fast spin echo, axial gradient echo, axial diffusion and ADC through the brain. COMPARISON: None. FINDINGS: Image quality: Excellent. CSF spaces: Ventricles appear symmetric in size and shape. Basal cisterns are patent. No extra-axial fluid collections. Brain: No intracranial bleeds or mass effects. There is cerebral volume loss for age. There are periventricular and deep white matter chronic small vessel ischemic changes. Brainstem appears normal. Diffusion-weighted images show no acute infarct. No chronic ischemic insults. Normal intravascular flow voids are present. Skull and face: Calvarial bone marrow is normal in signal. Orbits are normal. Sinuses: Small left maxillary sinus mucous retention cyst. Sinuses and mastoids are otherwise clear. IMPRESSION: No acute intracranial abnormalities. No cause for patient's symptoms is identified. Mild age-related global volume loss and chronic microvascular ischemic changes are present. Dictated by: Jose Collazo M.D. on 09/15/2024 at 15:44 Approved by: Jose Collazo M.D. on 09/15/2024 at 15:46
== END ==
LOC: MRI 12:12
PROVIDERS: Family Provider Family Medicine; PCP Family Medicine; Referring Provider Family Medicine; Visit Provider Family Medicine
DX: R51.9 Headache, unspecified (principal); J34.1 Cyst and mucocele of nose and nasal sinus
CPT/HCPCS: 70551